=== PATIENT | female | born 1940 | race Caucasian/White ===

== ENCOUNTER 2019-06-03 11:35 | Day surgery (SDC) | payer MEDICARE, SELFPAY ==
[2019-06-03] VITALS (13 sets, daily range): BP systolic 97–127; BP diastolic 43–67; PULSE 44–68; RESP 12–26; TEMP 36.3–36.4; O2SAT 95–100; BMI 24.8
--- NOTE | 2019-06-03 12:26 | ANES.PREANE2 ---
Pre-Anesthetic Assessment Pre-Anesthetic Assessment: Height/Weight: Height 1.57 m Weight 61.689 kg Preop Diagnosis: L inguinal Hernia Proposed Procedure: Operation Date: 06/03/19 15:40 Proposed Procedures p Lap poss Open left Inguinal Hernia Repair with Mesh [id number] K40.30(Not Applicable) - Salbador Light MD Familial anesthetic complications: waking up during anesthesia - wasn't able to move during, was paralyzed, but could feel pain and voices talking about need for cautery, then she fell asleep, states she had a breathing tube in. states this episode lasted about 2 minutes Was Beta Ramesh taken within 24 hours: N/A Last intake: Intake Last Liquid Date 06/02/19 Last Liquid Time 22:00 Last Solid Date 06/02/19 Last Solid Time 06:30 Social: Social History: No alcohol and No tobacco Exam: Pre-Anes Outpt Exam: alert, oriented x 3, clear to auscultation bilaterally and regular rate & rhythm Airway: Cervical ROM: WNL Dentition: Full Pulmonary: Pulmonary: COPD (seen on imaging) Comments: hx PE in chart, but patient denies CV/HEM: Comments: Holter monitor 08/27 - PVCs, couplets Echo 08/27 - normal RV, LV, Mild AVR, MVR, mild pulm HTn hx pericarditis : : None reported Hepatic: Hepatic: None reported GI: GI: None reported Metabolic: Metabolic: Hyperlipidemia Comments: used to be morbidly obese Musc/skel: Musc/skel: Lower Back Pain Neuropsych: Neuropsych: None reported Comments: glaucoma Anesthetic Plan: ASA status: 3 Anesthesia: General Risk of > 500 ml blood loss (7ml/kg in children): No PFSH Anesthesia PFSH: Social History Smoking and tobacco status: former smoker History of recent travel: No Data Anesthesia Cardiac Studies: No Data to Display
[2019-06-03] MEDS: sodium chloride 0.9% 1,000 ML 30 ML IV (12:56)
--- NOTE | 2019-06-03 15:28 | W.PM.OPSUD ---
Surgery/Procedure H&P Update DATE OF PROCEDURE: June 03, 2019 DATE H&P PERFORMED: 06/02/19 H&P UPDATE INFORMATION: I have reviewed H&P completed within last 30 days, I have examined patient prior to procedure and No changes to prior documentation PREOP DIAGNOSIS: L inguinal Hernia PLANNED PROCEDURE: Operation Date: 06/03/19 15:40 Proposed Procedures p Lap poss Open left Inguinal Hernia Repair with Mesh [id number] K40.30(Not Applicable) - Salbador Light MD
--- NOTE | 2019-06-03 16:52 | SUR.PHASEI ---
1650 PATIENT TO PACU AT THIS TIME FROM OR. RR EVEN AND UNLABORED. RESPONDS TO VERBAL STIMULI. DENIES PAIN. 3 INCISIONS TO ABDOMEN, CDI, CLOSED WITH EXOFIN.
[2019-06-03] MEDS: fentaNYL 50 mcg/mL INJ 2mL IVP ×2 (17:03→17:11)
--- NOTE | 2019-06-03 17:34 | SUR.PHASEI ---
1731 PATIENT TO OPS AT THIS TIME. RR EVEN AND UNLABORED. TOLERATING ICE CHIPS. INCISIONS TO ABDOMEN, CDI.
--- NOTE | 2019-06-13 17:23 | PM.OP ---
Operative Report Date of procedure: June 03, 2019 Pre-op Diagnosis: L inguinal Hernia Post-op Diagnosis: Large left indirect inguinal hernia Procedure Done: Laparoscopic repair of left indirect reducible inguinal hernia with 15 x 15 cm ultra Pro mesh Pathology: none sent Surgeon: Salbador Light Anesthesia: General Estimated blood loss (mL): 10 Condition: stable Disposition: PACU Procedure: The patient was taken to the operating room. After IV antibiotic was administered, the abdomen was prepped and draped in a sterile manner. Using a 15 blade, a 1.0 cm transverse incision was made infraumbilically on the left side. Subcutaneous tissue was divided using electrocautery and the anterior rectus sheath divided using an 11 blade. The rectus muscle was retracted laterally and the extraperitoneal space identified. A 11 mm port was placed and 12 mm of pneumoperitoneum was created. A 10 mm 30? scope was introduced and the retrorectus space was opened using the camera up to the pubic symphysis and 5 mm ports were placed in the midline, one 2-fingerbreadths above the pubic symphysis and the other midway between these two ports under direct visualization. Blunt dissection was carried out to open up the tissue in the midline and to the pubic symphysis, which was identified. The dissection was then carried laterally where the iliopubic tract was identified. There was no femoral, obturator or direct hernia noted. The inferior epigastric artery was identified and dissection was carried posterior to it and laterally, the space was opened up to the level of the umbilicus superior to the anterior superior iliac spine. I then proceeded to dissect out the round ligament and the large indirect hernial sac was reduced . 15 x 15cm Ultrapro mesh was rolled and introduced through the 10 mm port and then rolled laterally and apposed well against the abdominal wall to cover the myopectineal orifice completely. 10 Cc of 0.5% Marcaine was infiltrated into the preperitoneal space. The extraperitoneal space was desufflated under direct visualization to ensure no slippage of hernial sac under the mesh. All ports were removed, the anterior rectus fascia at the infraumbilical port closed using figure of eight 0 Vicryl sutures, subcutaneous tissue approximated using 3-0 Vicryl sutures and skin at all three port sites were closed using running subcuticular 4-0 Monocryl sutures and Dermabond. 10 mL of 0.5% Marcaine was infiltrated at the port sites. The patient was stable throughout the procedure.
== END 2019-06-03 18:35 | disposition home or self-care (01) ==
PROVIDERS: Family Provider Family Medicine; Visit Provider Surgery
PROC: (CPT 49650; principal; 2019-06-03 15:10)
DX: K40.90 Unilateral inguinal hernia, without obstruction or gangrene, not specified as recurrent (principal); Z87.891 Personal history of nicotine dependence; E78.5 Hyperlipidemia, unspecified
CPT/HCPCS: 49650; 12345; J0131; J0330; J0690; J2001; J2250; J2704; J2710; J3010; J3490; J7030

== ENCOUNTER 2019-06-04 18:37 | Observation (INO) | payer MEDICARE, SELFPAY ==
--- NOTE | 2019-06-04 19:21 | ED_ITS ---
HPI - Abdominal Pain General: Chief Complaint: Abdominal Pain Stated Complaint: abd pain Time Seen by Provider: 06/04/19 19:19 History of Present Illness: MD elicited complaint: abdominal pain Pertinent past history: other (Left inguinal hernia repair yesterday) Onset (ago): hour(s) Location: RUQ and RLQ Severity: moderate Quality: cramping, aching and sharp Radiation: none Migration to: no migration Exacerbating factors: movement Associated Symptoms: Reports constipation, fever(s) and nausea; Denies dysuria, hematuria and vomiting Review of Systems Const: Reports: fever Eyes: Denies: change in vision or blurry vision ENMT: Denies: painful swallowing, Change in hearing, nose bleeds or facial/sinus pain Card: Denies: chest pain or edema Resp: Denies: shortness of breath, productive cough, non-productive cough or wheezing GI: Reports: nausea and constipation; Denies: vomiting : Denies: painful urination, urinary frequency, urinary urgency or blood in urine Musc: Denies: neck pain, back pain, redness or joint warmth Skin/Breast: Denies: rash, itching or redness Neuro: Denies: headache, dizziness, vertigo or confusion Psych: Denies: anxiety PFSH ED PFSH: Social History Smoking and tobacco status: never smoked History of recent travel: No Physical Exam Const: GENERAL APPEARANCE: well developed ORIENTATION/CONSCIOUSNESS: Yes oriented to person, Yes oriented to place and Yes oriented to time HENMT: COMMON NORMALS: normocephalic, external ears normal and external nose normal HEAD & SCALP: normocephalic FACE & SINUS: normal facial exam NO SE: external nose normal and no nasal discharge EXTERNAL EAR: Yes external ears normal MOUTH: tongue normal Eye: COMMON NORMALS: PERRL, EOMs intact bilaterally and conjunctivae normal EYELID: eyelids normal CONJUNCTIVA: Yes conjunctivae normal PUPIL: Yes PERRL Neck/C-Spine: GENERAL: No tracheal deviation Chest: COMMONS NORMALS: inspection of chest normal CHEST: No tenderness Resp: COMMON NORMALS: clear to auscultation bilaterally EFFORT & INSPECTION: No tachypneic, No respiratory distress, No retractions, No uses accessory muscles and No tracheal deviation AUSCULTATION: clear to auscultation bilaterally, no rhonchi, no wheezes and lung sounds not diminished Cardio: COMMON NORMALS: regular rate and regular rhythm RATE: regular rate RHYTHM: regular rhythm HEART SOUNDS: no murmurs PERIPHERAL PULSES: radial pulses present GI: INSPECTION: No abdominal distension AUSCULTATION: No hyperactive bowel sounds and No hypoactive bowel sounds PALPATION: Yes tender Details: RLQ and RUQ, Yes guarding and No rigid PERCUSSION: no dullness to percussion and no tympanic to percussion : COMMON NORMALS: Yes no CVA tenderness BLADDER/KIDNEY EXAM: Yes no CVA tenderness Back/Pelvis: COMMON NORMALS: no CVA tenderness Neuro: SENSORIUM/ORIENTATION: Yes oriented to person, Yes oriented to place and Yes oriented to time Psych: COMMON NORMALS: mental status grossly normal Skin: COMMON NORMALS: no rashes or lesions noted GENERAL SKIN EXAM: no rashes or lesions noted Course Consultations: Consultation #1: evelin Vital Signs: Vital signs: Vital Signs Temperature 97.5 F L 06/05/19 01:39 Pulse Rate 78 06/05/19 01:39 Respiratory Rate 19 H 06/05/19 01:39 Blood Pressure 150/81 06/05/19 01:39 Pulse Oximetry 91 06/05/19 01:39 MDM - Abdominal Pain MDM Narrative: Medical decision making narrative: 79-year-old lady presenting with right-sided belly pain. 24 hours prior, she had had surgery for left inguinal hernia. She had done well until around 10 AM, and began to get pain on her right side. Pain worsened over the course of the day. Now pain with deep breaths, and any movement. She feels like she needs to have a bowel movement. She seemed to worsen after taking Colace. She is also had a fever at home up to 101.9. Her white blood cell count is normal. Her labs are benign. CT shows pneumoperitoneum, retroperitoneal air, and some subcutaneous emphysema. Spoke with her surgeon. This may be related to her surgery. CT was repeated with oral contrast, which did not reveal any extravasation of the contrast from any bowel perforation. She will be observed. She has gotten Zosyn. Lab Data: Labs: Lab Results 06/04/19 06/04/19 06/04/19 Range/Units 19:50 19:50 19:50 WBC 6.5 (4.0-10.0) 10^3/ uL RBC 3.70 L (4.1-5.3) 10^6/u L Hgb 11.5 (11.5-15.3) g/dL Hct 37.8 (37.0-47.0) % MCV 102.2 H (81-99) fL MCH 31.1 (28.0-34.0) pg MCHC 30.4 (30.0-36.0) g/dL RDW 13.0 (12.1-15.1) % Plt Count 178 (130-400) 10^3/c mm MPV 9.6 (7.4-10.4) fL Neut % (Auto) 70.9 % Lymph % (Auto) 19.3 % [facility] % (Auto) 8.3 % Eos % (Auto) 0.9 % Baso % (Auto) 0.3 % Neut # (Auto) 4.6 (1.8-7.7) 10^3/u L Lymph # (Auto) 1.3 (0.8-4.8) 10^3/u L [facility] # (Auto) 0.5 (0.2-0.9) 10^3/u L Eos # (Auto) 0.1 (0.0-0.8) 10^3/u L Baso # (Auto) 0.0 (0.0-0.1) 10^3/u L Nucleated RBC % (a uto) 0 % Nucleated RBCs # 0.0 /100WBC Sodium 137 (136-145) mmol/L Potassium 4.0 (3.5-5.1) mmol/L Chloride 99 (98-107) mmol/L Carbon Dioxide 26 (22-29) mmol/L Anion Gap 16.0 (5-19) BUN 14 (8-23) mg/dL Creatinine 0.8 (0.5-0.9) mg/dL Glucose 108 (65-115) mg/dL Calculated Osmolal ity 281 L (285-295) mOsm/k g Lactate 0.7 (0.5-2.2) mmol/L Calcium 9.7 (8.5-10.5) mg/dL Total Bilirubin 0.7 (0.15-1.2) mg/dL AST 25 (0-32) U/L ALT < 5 (0-33) U/L Alkaline Phosphata se 59 (35-105) IU/L C-Reactive Protein 41.1 H (0.0-4.9) mg/L Total Protein 7.1 (6.6-8.7) g/dL Albumin 4.4 (3.5-5.2) g/dL Globulin 2.7 (1.3-4.6) g/dL Lipase 20 (13-60) U/L Urine Color (Yellow) Urine Appearance (CLEAR) Urine pH (5-7) Ur Specific Gravit y (1.005-1.030) Urine Protein (Negative) Urine Glucose (UA) (Normal) Urine Ketones (Negative) Urine Blood (Negative) Urine Nitrate (Negative) Urine Bilirubin (NEGATIVE) Urine Urobilinogen (Negative) mg/dL Ur Leukocyte Trini ase (Negative) Urine RBC (0-2) /hpf Urine WBC (0-5) /hpf Ur Squamous Epith Cells (0-5) Ur Transition Epit h Cell /hpf Urine Bacteria (NONE) Hyaline Casts Urine Mucus 06/04/19 Range/Units 20:35 WBC (4.0-10.0) 10^3/ uL RBC (4.1-5.3) 10^6/u L Hgb (11.5-15.3) g/dL Hct (37.0-47.0) % MCV (81-99) fL MCH (28.0-34.0) pg MCHC (30.0-36.0) g/dL RDW (12.1-15.1) % Plt Count (130-400) 10^3/c mm MPV (7.4-10.4) fL Neut % (Auto) % Lymph % (Auto) % [facility] % (Auto) % Eos % (Auto) % Baso % (Auto) % Neut # (Auto) (1.8-7.7) 10^3/u L Lymph # (Auto) (0.8-4.8) 10^3/u L [facility] # (Auto) (0.2-0.9) 10^3/u L Eos # (Auto) (0.0-0.8) 10^3/u L Baso # (Auto) (0.0-0.1) 10^3/u L Nucleated RBC % (a uto) % Nucleated RBCs # /100WBC Sodium (136-145) mmol/L Potassium (3.5-5.1) mmol/L Chloride (98-107) mmol/L Carbon Dioxide (22-29) mmol/L Anion Gap (5-19) BUN (8-23) mg/dL Creatinine (0.5-0.9) mg/dL Glucose (65-115) mg/dL Calculated Osmolal ity (285-295) mOsm/k g Lactate (0.5-2.2) mmol/L Calcium (8.5-10.5) mg/dL Total Bilirubin (0.15-1.2) mg/dL AST (0-32) U/L ALT (0-33) U/L Alkaline Phosphata se (35-105) IU/L C-Reactive Protein (0.0-4.9) mg/L Total Protein (6.6-8.7) g/dL Albumin (3.5-5.2) g/dL Globulin (1.3-4.6) g/dL Lipase (13-60) U/L Urine Color Yellow (Yellow) Urine Appearance Clear (CLEAR) Urine pH 5 (5-7) Ur Specific Gravit y 1.015 (1.005-1.030) Urine Protein Neg (Negative) Urine Glucose (UA) Norm (Normal) Urine Ketones 2+ H (Negative) Urine Blood 3+ H (Negative) Urine Nitrate Negative (Negative) Urine Bilirubin Neg (NEGATIVE) Urine Urobilinogen Norm (Negative) mg/dL Ur Leukocyte Trini ase Negative (Negative) Urine RBC 25-40 H (0-2) /hpf Urine WBC 0-4 H (0-5) /hpf Ur Squamous Epith Cells 0-4 H (0-5) Ur Transition Epit h Cell 0-4 /hpf Urine Bacteria Trace (NONE) Hyaline Casts 0-4 H Urine Mucus 1+ Discharge Plan Discharge Admit Provider: Salbador Light Discharge Date/Time: 06/05/19 01:25 Coding Level of Care Code ED Pallet Stone Inserter for Sue Arauz
[2019-06-04 19:23] VITALS: BP 132/82; PULSE 86; RESP 18; TEMP 37.7; O2SAT 98; BMI 24.8
--- NOTE | 2019-06-04 19:28 | PC.NURSE ---
Patient returns to [facility] with a post hernia surgery low grade fever.
--- NOTE | 2019-06-04 19:39 | CTR_ITS ---
PROCEDURE INFORMATION: Exam: CT Abdomen And Pelvis With Contrast Exam date and time: 06/04/2019 8:21 PM Age: 79 years old Clinical indication: Abdominal pain; Localized; Right; Prior surgery; Surgery date: Post-operative (0-2 days); Patient HX: C/O R sided abd pain after L hernia surgery yesterday; Additional info: R sided abdominal pain, surgery yesterday TECHNIQUE: Imaging protocol: Computed tomography of the abdomen and pelvis with intravenous contrast. Total DLP: 586.26 mGy-cm Radiation optimization: All CT scans at this facility use at least one of these dose optimization techniques: automated exposure control; mA and/or kV adjustment per patient size (includes targeted exams where dose is matched to clinical indication); or iterative reconstruction. Contrast material: OMNI 300; Contrast volume: 95 ml; Contrast route: 20G; COMPARISON: CT abdomen pelvis w con* [id number] 08/30/2018 1:07 PM FINDINGS: Lungs: Limited assessment lung bases reveals no evidence of active cardiopulmonary process. Cardiomegaly. Liver: Liver unremarkable. Gallbladder and bile ducts: Enlarged hydropic gallbladder. No visible cholelithiasis. No visible pericholecystic fluid or gallbladder wall thickening. Pancreas: Pancreas unremarkable. No visible pancreatic ductal ectasia. Spleen: Spleen unremarkable. Adrenals: Adrenal glands unremarkable. Kidneys and ureters: Rare simple renal cortical cyst. No hydronephrosis or perinephric fluid. Stomach and bowel: Redundant colon with diverticulosis coli without visible evidence of diverticulitis. Nonobstructive bowel pattern. No visible adynamic or reactive ileus. Appendix: No evidence of appendicitis. Intraperitoneal space: Findings raising the potential for gastroesophageal perforation. Potential rent at the gastroesophageal junction with extra luminal gas. Diffuse pockets of free air/pneumoperitoneum. Largest collection intraperitoneal pneumoperitoneum at the perforation site extending along the left renal Gerota's fascial plane. Small volume of intraperitoneal free air. Also note of a small amount of left-sided retroperitoneal air / pneumoretroperitoneum primarily in the left para renal space and the pericaval/periaortic space. No visible intraperitoneal ascites. Vasculature: The abdominal aorta is nonaneurysmal but demonstrates moderately advanced arterial sclerotic disease. Lymph nodes: Unremarkable. No enlarged lymph nodes. Bladder: Urinary bladder unremarkable. Reproductive: Unremarkable as visualized. Bones/joints: Degenerative disease and degenerative disc disease with facet arthrosis, osteoporosis, and scoliosis. Soft tissues: Numerous small pockets of subcutaneous emphysema throughout the lower abdomen, pelvis, and left inguinal region. Subcutaneous emphysema pockets throughout the left flank also present. Left inguinal hernia measuring 74 mm by 32 mm x 64 mm. Left inguinal hernia contains primarily fat with stranding and pockets of punctate emphysema. No incarcerated bowel. No loculated fluid collection. Clinical history provided by the ordering physician of a recent left inguinal herniorrhaphy. No visible hollow viscus perforation at the operative site. CT/CT abdomen pelvis w con* [id number] IMPRESSION: 1. Diffuse moderate volume pneumoperitoneum and small volume pneumoretroperitoneum. Exact etiology remains indeterminate. 2. Free intraperitoneal air congregates at at the gastroesophageal junction and raises some concern for a gastroesophageal perforation; however, this does not fit the clinical picture provided by the ordering physician. 3. Unable to identify a perforated hollow viscus site. 4. Left inguinal hernia containing dirty appearing fat with associated pockets of emphysema. Dimensions of the left inguinal hernia 74 mm x 32 mm x 64 mm. 5. Soft tissue subcutaneous emphysema. 6. Numerous other nonurgent, nonemergent, chronic, and age related findings as detailed in text above. COMMENTS: Consistent with the [place] [employer]'s Incidental Findings Committee white paper (J Am Moses Radiol 2018): Any incidental cystic renal lesion classified in this report as too small to characterize or simple appearing is likely a benign cyst. No follow-up imaging is recommended for these lesions per consensus recommendations based on imaging criteria. Radiation Dose CTDIVOL = (mGy): DLP = 586.26 (mGy-cm)
[2019-06-04 20:03] LABS: Basophils % 0.3 %; Eosinophils # 0.1 10^3/uL (0.0-0.8); Eosinophils % 0.9 %; Hematocrit 37.8 % (37.0-47.0); Hemoglobin 11.5 g/dL (11.5-15.3); Lymphocytes # 1.3 10^3/uL (0.8-4.8); Lymphocytes % 19.3 %; Mean Corpuscular HGB Conc 30.4 g/dL (30.0-36.0); Mean Corpuscular Hemoglobin 31.1 pg (28.0-34.0); Mean Corpuscular Volume 102.2 fL (81-99); Mean Platelet Volume 9.6 fL (7.4-10.4); Monocytes # 0.5 10^3/uL (0.2-0.9); Monocytes % 8.3 %; Neutrophils # 4.6 10^3/uL (1.8-7.7); Neutrophils % 70.9 %; Nucleated Red Blood Cells % 0 %; Platelet Count 178 10^3/cmm (130-400); White Blood Count 6.5 10^3/uL (4.0-10.0)
[2019-06-04] MEDS: morphine 4 mg/mL SDV 1 mL IVP (20:15)
[2019-06-04] MEDS: ondansetron 2 mg/ML SDV 2 mL 4 MG IVP (20:15)
[2019-06-04] MEDS: sodium chloride 0.9% 500 ML IV (20:16)
[2019-06-04 20:19] LABS: Lactate (Lactic Acid level) 0.7 mmol/L (0.5-2.2)
[2019-06-04 20:22] LABS: Alanine Aminotransferase < 5 U/L (0-33); Albumin Level 4.4 g/dL (3.5-5.2); Alkaline Phosphatase 59 IU/L (35-105); Aspartate Amino Transferase 25 U/L (0-32); Blood Urea Nitrogen 14 mg/dL (8-23); Calcium 9.7 mg/dL (8.5-10.5); Carbon Dioxide 26 mmol/L (22-29); Chloride 99 mmol/L (98-107); Globulin 2.7 g/dL (1.3-4.6); Glucose 108 mg/dL (65-115); Lipase 20 U/L (13-60); Osmolality Calculated 281 mOsm/kg (285-295); Sodium 137 mmol/L (136-145); Total Bilirubin 0.7 mg/dL (0.15-1.2); Total Protein 7.1 g/dL (6.6-8.7)
[2019-06-04] MEDS: iohexol 300 mg/mL 100 mL Btl IV (20:54)
[2019-06-04 20:57] LABS: Add Urine Microscopic? YES; Bilirubin Urine Neg (NEGATIVE); Blood Urine 3+ (Negative); Glucose Urine UA Norm (Normal); Ketones Urine 2+ (Negative); Leukocyte Esterase Urine Negative (Negative); Nitrate Urine Negative (Negative); Protein Urine Neg (Negative); Specific Gravity, Urine 1.015 (1.005-1.030); Urine Appearance Clear (CLEAR); Urine Color Yellow (Yellow); Urobilinogen Urine Norm (Negative); pH Urine 5 (5-7)
[2019-06-04 20:57] LABS: C Reactive Protein 41.1 mg/L (0.0-4.9)
[2019-06-04 21:01] LABS: RBC Urine 25-40 /hpf (0-2); Squamous Epithelial Cell Urine 0-4 (0-5); Transitional Epi Cells Urine 0-4 /hpf; WBC Urine 0-4 /hpf (0-5)
[2019-06-04 21:02] LABS: Add Urine Culture? Yes; Bacteria Urine TRACE; Hyaline Casts Urine 0-4; Mucus Urine 1+
[2019-06-04 21:07] VITALS: BP 103/47; PULSE 77; RESP 14; O2SAT 96
--- NOTE | 2019-06-04 21:55 | CTR_ITS ---
PROCEDURE INFORMATION: Exam: CT Abdomen And Pelvis Without Contrast Exam date and time: 06/04/2019 10:08 PM Age: 79 years old Clinical indication: Abdominal pain; Localized; Right lower quadrant (rlq); Prior surgery; Surgery date: Post-operative (0-2 days); Surgery type: L hernia repair; Additional info: Free air, pain TECHNIQUE: Imaging protocol: Computed tomography of the abdomen and pelvis without contrast. Total DLP: 628.94 mGy-cm Radiation optimization: All CT scans at this facility use at least one of these dose optimization techniques: automated exposure control; mA and/or kV adjustment per patient size (includes targeted exams where dose is matched to clinical indication); or iterative reconstruction. COMPARISON: CT abdomen pelvis w con* [id number] 06/04/2019 8:52 PM FINDINGS: Please review previous CT abdomen and pelvis report same date at 8:52 p.m. Examination repeated with oral contrast. Kidneys and ureters: Delayed contrast excretion of the kidneys, ureter, and urinary bladder without filling defect. Stomach and bowel: Oral contrast to the proximal ileal loops only. No contrast within the colonic loops. No contrast within the distal ileal loops. No visible extravasation of contrast.Specifically no extravasation of contrast at the gastroesophageal junction. Doubt gastroesophageal junction rupture/rent. Remainder of the examination unchanged since the initial study of 8:52 p.m. Intraperitoneal space: Intraperitoneal pneumoperitoneum and retro pneumoperitoneum remains as previously discussed. Subcutaneous subcutaneous emphysema also unchanged. CT/CT abdomen pelvis wo con [id number] IMPRESSION: 1. No visible extravasated oral contrast to include no evidence of gastroesophageal perforation. 2. No interval change intraperitoneal pneumoperitoneum, retropneumoperitoneum, or subcutaneous emphysema as previously discussed. 3. Remainder of examination unchanged since original study of 8:52 p.m.. Radiation Dose CTDIVOL = (mGy): DLP = 628.94 (mGy-cm)
[2019-06-04] MEDS: piperacillin-tazobactam 3.375 GM in sodium chloride 0.9% (plus) 50 ML IV (23:04)
[2019-06-05] VITALS (15 sets, daily range): BP systolic 104–150; BP diastolic 62–81; PULSE 67–94; RESP 16–22; TEMP 36.4–37.7; O2SAT 19–96
--- NOTE | 2019-06-05 01:15 | PC.NURSE ---
notified patient family of admit per patients request. Spoke to Erick Wu patients son.
[2019-06-05] MEDS: ondansetron 2 mg/ML SDV 2 mL 4 MG IVP (02:28)
[2019-06-05] MEDS: lactated ringers 1,000 ML 100 ML IV (02:29)
[2019-06-05] MEDS: morphine 4 mg/mL SDV 1 mL 2 MG IVP ×4 (02:29→22:54)
[2019-06-05 05:13] LABS: Basophils % 0.2 %; Eosinophils # 0.1 10^3/uL (0.0-0.8); Eosinophils % 2.1 %; Hematocrit 34.5 % (37.0-47.0); Hemoglobin 10.4 g/dL (11.5-15.3); Lymphocytes # 1.1 10^3/uL (0.8-4.8); Lymphocytes % 23.5 %; Mean Corpuscular HGB Conc 30.1 g/dL (30.0-36.0); Mean Corpuscular Hemoglobin 30.1 pg (28.0-34.0); Mean Corpuscular Volume 99.7 fL (81-99); Mean Platelet Volume 9.6 fL (7.4-10.4); Monocytes # 0.6 10^3/uL (0.2-0.9); Nucleated Red Blood Cells % 0 %; Platelet Count 146 10^3/cmm (130-400); Red Blood Count 3.46 10^6/uL (4.1-5.3); Red Cell Distribution Width 13.1 % (12.1-15.1); White Blood Count 4.8 10^3/uL (4.0-10.0)
[2019-06-05 05:31] LABS: Alanine Aminotransferase 10 U/L (0-33); Alkaline Phosphatase 53 IU/L (35-105); Anion Gap 13.7 (5-19); Aspartate Amino Transferase 24 U/L (0-32); Blood Urea Nitrogen 11 mg/dL (8-23); Calcium 9.6 mg/dL (8.5-10.5); Carbon Dioxide 30 mmol/L (22-29); Chloride 101 mmol/L (98-107); Globulin 2.4 g/dL (1.3-4.6); Glucose 93 mg/dL (65-115); Osmolality Calculated 288 mOsm/kg (285-295); Potassium 3.7 mmol/L (3.5-5.1); Sodium 141 mmol/L (136-145); Total Bilirubin 0.6 mg/dL (0.15-1.2); Total Protein 6.4 g/dL (6.6-8.7)
[2019-06-05] MEDS: sodium chloride 0.9% 1,000 ML 100 ML IV ×2 (06:33→16:55)
--- NOTE | 2019-06-05 07:35 | PC.NURSE ---
This TELEGRAPHIC TYPEWRITER MECHANIC was checking patients vital signs and her oxygen was low. This Ground Service Equipment Mechanic encouraged the patient to do some deep breathing and the patient refused. This data virtualization consultant went and reported it to the nurse and the nurse said that she would go in the patients room and educate her
--- NOTE | 2019-06-05 09:00 | XRR_ITS ---
PROCEDURE INFORMATION: Exam: XR Chest, 1 View Exam date and time: 06/05/2019 10:25 AM Age: 79 years old Clinical indication: Shortness of breath; Prior surgery; Surgery date: Post-operative (0-2 days); Patient HX: Abd free air S/P lap hernia 2 days ago C/O SOB; Additional info: SOB S/P lap hernia repair 2 days ago TECHNIQUE: Imaging protocol: XR of the chest Views: 1 view. COMPARISON: No relevant prior studies available. FINDINGS: Lungs: Hyperinflation, interstitial prominence, and basilar airspace disease. Pleural space: Questionable left pleural effusion, which can be better evaluated with AP and lateral chest radiographs. Heart/Mediastinum: Cardiomegaly. Upper abdomen: Pneumoperitoneum in the setting of recent surgery. Vasculature: Calcification of the thoracic aorta. Bones/joints: Osteopenia and degenerative change. XR/XR chest 1V portable [id number] IMPRESSION: 1. Hyperinflation, interstitial prominence, and basilar airspace disease. 2. Pneumoperitoneum in the setting of recent surgery.
[2019-06-05] MEDS: piperacillin-tazobactam 3.375 GM in sodium chloride 0.9% (plus) 50 ML IV ×2 (09:33→16:56)
--- NOTE | 2019-06-05 10:29 | P.HP_ITS ---
Providers/Chief Complaint Admitting Physician: Salbador Light MD Chief Complaint: abd pain History of Present Illness Brittny Ramirez is a 79 year old female who had undergone laparoscopic repair of left inguinal hernia with mesh day before yesterday. Patient had done well yesterday morning and did not have any abdominal pain and had gone for 1/2 mile walk. Later yesterday she started having abdominal pain, distention and started running a fever. Patient states that the pain is mainly on the right side does not have any pain at the site of the surgical repair. She denies any nausea or vomiting. She has already walked 2 laps on the floor today but states that she is the most comfortable when she is sitting up on her side. Her T-max since admission was 99.7 this morning, she is not tachycardic. She had a CT abdomen pelvis which showed large amount of pneumoperitoneum but no evidence of bowel injury. She seems to have significant amount of stool in the right colon. Patient states that her pain got worse after she took Colace yesterday. Denies any urinary symptoms or shortness of breath though she states that she is not able to take a deep breath. Review of Systems General: Reports: 10 or more systems reviewed and unremarkable except in HPI and below Medications/Allergies Allergies Allergy/AdvReac Type Severity Reaction Status Date / Time Antihistamines - Alkylamine Allergy ADR-Hyperte Verified 06/02/19 16:21 nsion Antihistamines - Ethanolamine Allergy ADR-Hyperte Verified 06/02/19 16:21 nsion Antihistamines - Allergy ADR-Hyperte Verified 06/02/19 16:21 Ethylenediamine nsion Antihistamines - Piperazine Allergy ADR-Hyperte Verified 06/02/19 16:21 nsion Antihistamines - Piperidine Allergy ADR-Hyperte Verified 06/02/19 16:21 nsion pneumococcal vaccine Allergy Unknonwn Verified 06/02/19 16:30 [From Pneumovax-23] quinine Allergy Restless Verified 06/02/19 16:30 leg PFSH Acute PFSH: Social History Smoking and tobacco status: never smoked History of recent travel: No Vitals/I&O/Wt Last Vital Signs Temp 99.6 F 04/19/20 07:34 Pulse 73 06/05/19 07:34 Resp 18 06/05/19 07:34 BP 120/64 06/05/19 07:34 Pulse Ox 89 L 06/05/19 07:34 06/04/19 06/05/19 06/05/19 22:59 06:59 14:59 Intake Total 550 / 550 Output Total 800 / 800 Balance 550 / 550 -800 / -800 Weight last 48 hrs Weight 136 lb Physical Exam Narrative: EXAM NARRATIVE: HEENT: Normocephalic Eye: Sclera /conjunctiva normal Respiratory and chest: Bilateral clear breath sounds on auscultation Cardiovascular: Normal S1 and S2 heart sounds Abdomen: Soft to palpation, tender right upper and lower quadrant, minimally tender left upper quadrant, no tenderness in the left lower quadrant. Incisions healing well, no significant distention Neurological: Oriented to place person and time Skin: Intact, no lesions appreciated on gross exam Data : 06/05/19 04:59 06/05/19 04:59 A&P Assessment and plan (1) Status post left inguinal hernia repair: Denies any pain or any complaints in the left groin, no evidence of hernia recurrence Status: Acute (2) Abdominal pain: Mainly right-sided, white count and lactate were normal. UA was negative. Chest x-ray is pending from this morning. CT abdomen pelvis revealed pneumo peritoneum as well as moderate to large amount of stool in the right colon Resume home medications Incentive spirometry Ambulate ad tiffanie. Clear liquid diet Soapsuds enema Magnesium citrate Lovenox 40 mg daily Patient will need 1 more night of inpatient stay to ensure that she does not develop any complications, concern being a possible bowel injury though clinically at this point she does not appear to have any evidence of bowel injury. Status: Acute Attestations Medical Necessity Statement*: Open status post left inguinal hernia repair, admitted as patient is febrile no evidence of bowel obstruction or bowel injury at this point Coding Level of Care Code Acute Look Out Tower Fire Watcher for Sue Arauz Diagnoses Status post left inguinal hernia repair Z98.890; Z87.19 Abdominal pain R10.9
[2019-06-05] MEDS: lactulose oral liq 20 gm/30 mL UDC PO ×2 (12:01→22:54)
[2019-06-05] MEDS: magnesium citrate Btl 296 mL 150 ML PO (12:43)
[2019-06-05] MEDS: docusate sodium 100 mg Capsule PO (17:43)
[2019-06-05] MEDS: enoxaparin 40 mg/0.4 mL Syringe SUBCUT (22:55)
[2019-06-06] VITALS: BP 102/61; PULSE 75; RESP 18; TEMP 37.2; O2SAT 90
[2019-06-06] MEDS: piperacillin-tazobactam 3.375 GM in sodium chloride 0.9% (plus) 50 ML IV (01:49)
[2019-06-06] MEDS: sodium chloride 0.9% 1,000 ML 100 ML IV (03:33)
[2019-06-06 04:00] VITALS: BP 107/61; PULSE 71; RESP 17; TEMP 37.4; O2SAT 90
[2019-06-06 08:00] VITALS: BP 112/69; PULSE 87; RESP 18; TEMP 37.1; O2SAT 90
[2019-06-06] MEDS: docusate sodium 100 mg Capsule PO (09:34)
[2019-06-06] MEDS: lactulose oral liq 20 gm/30 mL UDC PO (09:35)
[2019-06-06] MEDS: magnesium citrate Btl 296 mL PO (09:43)
--- NOTE | 2019-06-06 09:55 | PC.CHAP ---
Pastoral Care Encounter/Spiritual Assessment Type of Contact [] Declined band leader visit [] Patient/Family/Request visit [] Outpatient visit [] Follow-up visit [] Physician referral [] Code/Alert [x] Routine visit [] Staff referral [] Actively dying [] Patient sleeping [] Family support [] [] Out of room [] Palliative care [] [] Receiving care in room [] Pre-surgical visit [] Trauma [] Long length of stay [] ICU visit [] Other: Relational/Emotional Strength [] Patient feels connected with others/family/visitors/staff [] Distress [] Loneliness/isolation [] Abandonment Spirituality of Patient [] Person of Savana [] Attends Mormon of their [place] [x] Believes in Prayer [] Reads Bible or Cheondoism materials [] There are Spiritual issues to be addressed Building Construction Contractor Interventions [x] Prayer [] Active listening [] Non-anxious presence [] Spiritual/emotional support [] Crisis/trauma care [] Spiritual counseling [] Bereavement support [] Provided bereavement packet [] Provided Bible/devotional materials [] Provided toy/stuffed animal, coloring book to patient or family member [] Provided Communion [] Anointing/[employer] [] Salvation [x] Completed spiritual assessment [] Other: Impact on Illness or Injury [] Angry [] Fearful [] Anxious [] Often cries [] Exhaustion [] Unable to work [] Unable to attend restorationism [] Unable to walk/stand [] Unable to read [] Unable to drive [] Unable to eat/drink [] Unable to sleep [] Unable to be with family [] Patient intubated [] Other: Summary Patients pain under control, feeling much better Time spent with patient 10 min
[2019-06-06 11:33] VITALS: BP 117/71; PULSE 78; RESP 18; TEMP 37; O2SAT 94
--- NOTE | 2019-06-06 13:55 | PM.PN ---
Subjective Subjective: Interval history: Patient has been feeling a lot better though still has some right lower quadrant pain. No nausea or vomiting. Had a large bowel movement today Vitals/I&O/Wt Last Vital Signs Temp 98.6 F 06/06/19 11:33 Pulse 78 06/06/19 11:33 Resp 18 06/06/19 11:33 BP 117/71 06/06/19 11:33 Pulse Ox 94 06/06/19 11:33 06/05/19 06/06/19 06/06/19 22:59 06:59 14:59 Intake Total 1512 / 2562 1000 / 2562 480 / 480 Output Total 1800 / 2600 Balance -288 / -38 1000 / -38 480 / 480 Weight last 48 hrs Weight 136 lb Physical Exam Narrative: EXAM NARRATIVE: Abdomen: Soft, Minimally tender on the right side, nondistended cyst healing well Data : 06/05/19 04:59 06/05/19 04:59 Micro: Microbiology 06/04/19 20:35 Urine Culture - Preliminary Urine,Clean Catch A&P Assessment and plan (1) Status post left inguinal hernia repair: Patient feeling a lot better today, I suspect her abdominal pain was secondary to pneumoperitoneum, constipation and fevers likely secondary to atelectasis since patient was unable to take deep breaths. Her incentive spirometry is improved today and she is had bowel movements. We will therefore start her on a full liquid diet and give 1 bottle of magnesium citrate and enema today. If she does well she can go home later today Status: Acute Attestations Medical Necessity Statement*: Abdominal pain status post inguinal hernia repair Coding Level of Care Code Acute Infant Childcare Provider for Sue Arauz Diagnoses Status post left inguinal hernia repair Z98.890; Z87.19
--- NOTE | 2019-06-06 14:04 | PM.DCS ---
Discharge Providers Date of Admission: 06/05/19 00:55 Date of Discharge: June 06, 2019 Attending Provider at Admission: Salbador Light MD Attending Provider at Discharge: Salbador Light MD Diagnoses at Discharge Discharge Diagnosis (1) Status post left inguinal hernia repair: Status: Acute Reason for Visit Reason for Visit: Reason For Visit: abd pain Hospital Course Discharge Summary: Brittny Ramirez is a 79 year old female who had undergone laparoscopic repair of left inguinal hernia with mesh day before yesterday. Patient had done well yesterday morning and did not have any abdominal pain and had gone for 1/2 mile walk. Later yesterday she started having abdominal pain, distention and started running a fever. Patient states that the pain is mainly on the right side does not have any pain at the site of the surgical repair. She denies any nausea or vomiting. She has already walked 2 laps on the floor today but states that she is the most comfortable when she is sitting up on her side. Her T-max since admission was 99.7 this morning, she is not tachycardic. She had a CT abdomen pelvis which showed large amount of pneumoperitoneum but no evidence of bowel injury. She seems to have significant amount of stool in the right colon. Patient states that her pain got worse after she took Colace yesterday. Denies any urinary symptoms or shortness of breath though she states that she is not able to take a deep breath. She was put on an aggressive bowel regimen and by following morning she had large bowel movements. At time of discharge her abdominal pain was minimal, she was tolerating a liquid diet and her vital signs are stable Physical Exam Narrative: EXAM NARRATIVE: Abdomen: Soft, nontender, nondistended Discharge Data Data Completed and Pending: Completed Studies During Hospitalization Category Date Time Status CT abdomen pelvis w con* [id number] Urge nt Cat Scan 06/04/19 19:[address] abdomen pelvis wo con [id number] Urge nt Cat Scan 06/04/19 21:55 Completed XR chest 1V sanchez ble [id number] Urgent Exams 06/05/19 09:00 Completed Pending at discharge Category Date Time Status Urine Culture Sta t Lab 06/04/19 20:35 Results Vitals: Last Vital Signs Temp 98.6 F 06/06/19 11:33 Pulse 78 06/06/19 11:33 Resp 18 06/06/19 11:33 BP 117/71 06/06/19 11:33 Pulse Ox 94 06/06/19 11:33 Discharge Plan Discharge Patient Disposition: Home, Self-Care Condition: Stable Prescriptions: New lactulose 10 gram/15 mL solution 15 ml PO BID Qty: 237 RF: 2 Continued furosemide 20 mg tablet 20 mg PO PRN RF: 0 simvastatin 20 mg tablet 20 mg PO DAILY RF: 0 timolol 0.25 % drops 1 drop ophthalmic (eye) DAILY RF: 0 zolpidem 5 mg tablet 5 mg PO BEDTIME PRN (Reason: Sleep) RF: 0 hydrocodone-acetaminophen [[place]] 5-325 mg Tablet 1 tab PO Q4H PRN (Reason: Pain) RF: 0 docusate sodium [Colace] 100 mg capsule 100 mg PO BID Qty: 30 RF: 0 Discharge Orders: Discharge Order (Routine); Ordered 06/06/19 Ordered By: Salbador Light Referrals: Renetta Chong MD [Family Provider] - 06/13/19 8:00 am (Please keep the appointment you already have scheduled with dr. chong at [facility] on Thursday, June 12 at 8:00am. any questions or appointment changes, please call them at [phone]) Patient Instructions: Abdominal Pain - Adult, Lactulose (By mouth), Inguinal Hernia (DC) Activity Restrictions/Additional Instructions: 1. Up and walking as tolerated. 2. Ok to shower in 48 hours after surgery. 3. Remove Dermabond dressing in 7-10 days. 4. Do not lift more than 10 pounds. 5. Do not operate heavy machinery or drive while using pain medications. 6. Advised to return to ER or contact my office if there are any signs of infection like, increasing pain, fevers, chills, redness or drainage of pus. Discharge Date/Time: 06/06/19 17:15 Discharge Attestations Time Spent in Discharge Care*: less than 30 min Quality Metrics Clinical Quality Measures During this hospital stay, did patient experience: None Coding Level of Care Code Acute Airway Traffic Controller for Pasqualeg Fwd Diagnoses Status post left inguinal hernia repair Z98.890; Z87.19
[2019-06-06 14:13] VITALS: BP 117/71; PULSE 78; RESP 18; TEMP 37; O2SAT 94
[2019-06-06 15:43] VITALS: BP 136/71; PULSE 80; RESP 18; TEMP 36.8; O2SAT 93
--- NOTE | 2019-06-06 17:40 | PC.NURSE ---
Dsicharge Summary Patient was given discharge instructions and verbalized understanding. Iv discontinued and vitals within normal patient limits. all follow up appointments made and prescriptions sent to pharmacy. discharged home with son.
== END 2019-06-06 17:15 | disposition home or self-care (01) ==
LOC: ER 06-05 01:12 → MEDSURG 06-05 01:19
PROVIDERS: Admitting Provider Surgery; Emergency Provider Emergency Medicine; Family Provider Family Medicine; Visit Provider Surgery
DX: R10.31 Right lower quadrant pain (principal); Z98.890 Other specified postprocedural states; Z87.19 Personal history of other diseases of the digestive system; R06.02 Shortness of breath
CPT/HCPCS: 12345; 36415; 71045; 74176; 74177; 80053; 81001; 83605; 83690; 85025; 86140; 87086; 96361; 96365; 96366; 96372; 96374; 96375; 99283; A9270; G0378; J1650; J2270; J2405; J2543; J7030; J7040; Q9967

== ENCOUNTER 2020-04-11 15:10 | Outpatient (CLI) | payer MEDICARE, SELFPAY ==
--- NOTE | 2020-04-11 15:12 | MM_ITS ---
WS: [id number] BILATERAL DIGITAL SCREENING MAMMOGRAPHY WITH CAD CLINICAL INFORMATION: SCREENING HISTORY: Screening mammogram. No current complaints. COMPARISON: TECHNIQUE: Bilateral CC and MLO views. FINDINGS: The breasts are composed of heterogeneous fibroglandular density tissue, which can limit the detectio n of small underlying mass lesions. 10 mm subareolar asymmetric density left breast. Recommend spot c ompression views and ultrasound for further evaluation. This is best seen on the MLO view. Right breast is unremarkable. MM/[place] [id number] IMPRESSION: BI-RADS: 0-Incomplete: Need additional imaging evaluation FOLLOW UP: Need Additional Imaging RECOMMEND LEFT BREAST DIAGNOSTIC MAMMOGRAPHY AND ULTRASOUND FOR FURTHER EVALUAT ION.
== END 2020-04-11 15:11 | disposition home or self-care (01) ==
LOC: RADSHAW 15:11
PROVIDERS: PCP Family Medicine; Visit Provider Family Medicine
DX: Z12.31 Encounter for screening mammogram for malignant neoplasm of breast (principal)
CPT/HCPCS: 77067

== ENCOUNTER 2020-05-01 10:37 | Outpatient (CLI) | payer MEDICARE, SELFPAY ==
--- NOTE | 2020-05-01 10:43 | US_ITS ---
WS: [id number] LEFT DIGITAL MAMMOGRAPHY WITH CAD CLINICAL INFORMATION: ABNORMAL MAMMOGRAM COMPARISON: April 11, 2020 TECHNIQUE: 3 views of the left breast were obtained. FINDINGS: Scattered fibroglandular densities of the left breast. The previously described 10 mm subareolar asym metric density left breast partially compresses out on the spot compression views. Ultrasound is pend ing. ULTRASOUND BREAST LEFT TECHNIQUE: Ultrasound left breast focused area of concern. CLINICAL INFORMATION: ABNORMAL MAMMOGRAM COMPARISON: None. FINDINGS: Ultrasound left breast at the nipple. There are several dilated subareolar ducts at the 3,6,9 12:00 p ositions.. No intraductal lesion visualized. No solid lesions to target for biopsy. No other suspicio us findings. US/US breast LT limited* [id number] IMPRESSION: BI-RADS: 2-Benign FOLLOW UP: 1 Year Follow-up Recommend return to annual screening mammography.
== END 2020-05-01 10:38 | disposition home or self-care (01) ==
LOC: RADSHAW 10:41
PROVIDERS: PCP Family Medicine; Visit Provider Family Medicine
DX: R92.8 Other abnormal and inconclusive findings on diagnostic imaging of breast (principal)
CPT/HCPCS: 76642; 77065

== ENCOUNTER 2022-06-16 15:15 | Outpatient (CLI) | payer MEDICARE, SELFPAY ==
--- NOTE | 2022-06-16 15:35 | MM_ITS ---
WS: [id number] BILATERAL 3D TOMOSYNTHESIS DIGITAL SCREENING MAMMOGRAPHY WITH CAD CLINICAL INFORMATION: SCREENING HISTORY: Screening mammogram. No current complaints. COMPARISON: April 11, 2020 TECHNIQUE: Bilateral CC and MLO views. FINDINGS: Scattered fibroglandular densities bilaterally. No suspicious focal mass, asymmetry, calcifications, or architectural distortion. No evidence of malignancy. Stable subareolar densities LEFT breast. This was previously evaluated. MM/[place] [id number] IMPRESSION: BI-RADS: 2-Benign FOLLOW UP: 1 Year Follow-up Recommend return to annual screening mammography.
== END 2022-06-16 15:16 | disposition home or self-care (01) ==
LOC: RAD 15:18
PROVIDERS: PCP Family Medicine; Visit Provider Family Medicine
DX: Z12.31 Encounter for screening mammogram for malignant neoplasm of breast (principal)
CPT/HCPCS: 77063; 77067

== ENCOUNTER 2022-07-25 17:30 | Emergency (ER) | payer MEDICARE, SELFPAY ==
[2022-07-25 17:35] VITALS: BP 184/84; PULSE 80; RESP 16; TEMP 36.8; O2SAT 93; BMI 25.6
--- NOTE | 2022-07-25 19:09 | CTR_ITS ---
PROCEDURE INFORMATION: Exam: CT Head Without Contrast Exam date and time: 07/25/2022 7:16 PM Age: 82 years old Clinical indication: Pain; Visual disturbance; Headache not specified; Additional info: Vision changes with headache TECHNIQUE: Imaging protocol: Computed tomography of the head without contrast. Radiation optimization: All CT scans at this facility use at least one of these dose optimization techniques: automated exposure control; mA and/or kV adjustment per patient size (includes targeted exams where dose is matched to clinical indication); or iterative reconstruction. REPORTING DATA: Count of CT and Cardiac NM exams in prior 12 months: This patient has received 0 known CTs and 0 known cardiac nuclear medicine studies in the 12 months prior to the current study. COMPARISON: No relevant prior studies available. RADIATION DOSE METRICS: Total DLP (mGy-cm): 1240.58 FINDINGS: Brain: No hemorrhage. No edema, mass effect or midline shift. Periventricular and deep white matter hypodensities compatible with chronic microvascular ischemic changes. Cerebral ventricles: No ventriculomegaly. Paranasal sinuses: Visualized sinuses are unremarkable. No fluid levels. Mastoid air cells: No mastoid effusion. Bones/joints: No acute fracture. Soft tissues: Unremarkable. CT/CT head wo con* [id number] IMPRESSION: No acute intracranial abnormality.
--- NOTE | 2022-07-25 19:14 | W.ED.EYEPROB ---
HPI - Eye Problem General: Chief complaint: Eye Problems Stated complaint: Loss of vision with anomalies after Time Seen by Provider: 07/25/22 18:48 History of Present Illness: Patient is an 82-year-old female comes to the ED with vision change. Patient has a history of glaucoma, retinal detachment in left eye and has had multiple surgeries on left eye. Patient states her symptoms today were nothing like her past eye problems. Patient states that this morning around 7 AM she had a vision change in her left eye. She describes the vision change as seen sparklers in the lower vision field of left eye. Approximately 10 minutes later she then developed a vision change in her right eye that she describes as a loss in the central vision. Peripheral vision in right eye was still intact and she describes seeing a kidney bourgeois shaped goodson goodson spot covering her central vision. Her vision symptoms lasted for approximately 2 hours and completely resolved. She then developed a mild headache and has had a mild headache all throughout the day today.Here in the ED she states her vision is back to her normal baseline and has been like that since vision change resolved earlier this morning. Patient also has a history of hypertension. Denies any eye pain, pain with ocular movements, eye redness, fevers, chills, chest pain, shortness of breath, nausea/vomiting, abdominal pain, bladder or bowel symptoms. Patient also states that she has been taking her blood pressures at home and they have been running high for the past several weeks. She is not currently on any blood pressure medication. Patient also states that over the past several weeks she notices that she has bruising very easily which is not typical for her. Patient denies being on any blood thinners. Associated symptoms: Reports headache(s); Denies fever(s), nausea, neck pain or vomiting Review of Systems Const: Denies: fever(s), chills or fatigue Eyes: Reports: change in vision; Denies: eye discomfort ENMT: Denies: throat pain, odynophagia, nasal discharge or nasal congestion Card: Denies: chest pain, palpitations, edema, swelling of feet/ankles, dyspnea on exertion or orthopnea Resp: Denies: dyspnea, productive cough or non-productive cough GI: Denies: abdominal pain, nausea, vomiting, diarrhea, constipation or hematochezia : Denies: flank pain, dysuria or hematuria Musc: Denies: neck pain, back pain or extremity swelling Skin/Breast: Denies: rash or new lesions Neuro: Reports: headache(s); Denies: numbness in extremities or weakness in extremities PFSH ED PFSH: Medical History (Updated 07/25/22 @ 20:46 by MARA Aguilar) Glaucoma Hyperlipidemia Insomnia Surgical History (Updated 06/05/19 @ 10:33 by Salbador Light MD) History of knee surgery 3 Status post left inguinal hernia repair (~06/03/19) Family History Other Anesthesia complication Denies family history of Bleeding disorder Social History Smoking and tobacco status: never smoked Physical Exam Const: COMMON NORMALS: patient oriented x3, healthy appearing and alert GENERAL APPEARANCE: cooperative and comfortable HENMT: COMMON NORMALS: normocephalic HEAD & SCALP: normocephalic MOUTH: Normal oral and palatal mucosa present THROAT: posterior oropharynx normal and uvula midline Eye: COMMON NORMALS: Equal, round and reactive pupils present, EOMs intact bilaterally and conjunctivae normal GENERAL EYE: appearance normal, both eyes and all related structures CONJUNCTIVA: Yes conjunctivae normal PUPIL: Yes Equal, round and reactive pupils present Neck/C-Spine: COMMON NORMALS: supple GENERAL: Yes normal visual inspection Lymph: LYMPHATIC: no lymphadenopathy noted Resp: COMMON NORMALS: normal respiratory effort, No retractions, No use of accessory muscles and clear to auscultation bilaterally AUSCULTATION: clear to auscultation bilaterally Cardio: COMMON NORMALS: regular rate, regular rhythm, S1 normal heart sound present, S2 normal heart sound present, No gallops present (Cardio), No clicks present (Cardio), No murmurs present (Cardio) and Peripheral pulses 2+ throughout RATE: regular rate RHYTHM: regular rhythm HEART SOUNDS: S1 normal heart sound present and S2 normal heart sound present PERIPHERAL PULSES: Peripheral pulses 2+ throughout GI: COMMON NORMALS: Normal to inspection, nondistended, normoactive bowel sounds present, Soft to palpation, non-tender and no masses PALPATION: Yes Soft to palpation : COMMON NORMALS: Yes no CVA tenderness BLADDER/KIDNEY EXAM: Yes no CVA tenderness Back/Pelvis: COMMON NORMALS: no CVA tenderness Extremity: GENERAL: Yes normal exam except as noted Neuro: COMMON NORMALS: patient oriented x3, CN's II-XII intact bilaterally, moves all extremities, no focal motor deficits and no sensory deficits noted SENSORIUM/ORIENTATION: Yes alert COORDINATION/BALANCE: [id number] test normal SPEECH: speech normal GAIT: Yes Normal gait present SENSORY EXAM: Yes extremities (intact) MOTOR EXAM: 5/5 motor strength present throughout COORDINATION: [id number]-[id number] test normal Skin: COMMON NORMALS: no rashes or lesions noted GENERAL SKIN EXAM: no rashes or lesions noted and dry skin Course Vital Signs: Vital signs: Vital Signs Temperature 98.2 F 07/25/22 17:35 Pulse Rate 66 07/25/22 20:54 Respiratory Rate 16 07/25/22 20:54 Blood Pressure 135/68 07/25/22 20:54 Pulse Oximetry 93 07/25/22 20:54 Oxygen Delivery Me thod Room Air 07/25/22 17:35 MDM - Eye Problem Medical Decision Making Patient is an 82-year-old female comes to the ED with vision change. Patient has a history of glaucoma, retinal detachment in left eye and has had multiple surgeries on left eye. Patient states her symptoms today were nothing like her past eye problems. Patient states that this morning around 7 AM she had a vision change in her left eye. She describes the vision change as seen sparklers in the lower vision field of left eye. Approximately 10 minutes later she then developed a vision change in her right eye that she describes as a loss in the central vision. Peripheral vision in right eye was still intact and she describes seeing a kidney bourgeois shaped goodson goodson spot covering her central vision. Her vision symptoms lasted for approximately 2 hours and completely resolved. She then developed a mild headache and has had a mild headache all throughout the day today.Here in the ED she states her vision is back to her normal baseline and has been like that since vision change resolved earlier this morning. Patient also has a history of hypertension. Denies any eye pain, pain with ocular movements, eye redness, fevers, chills, chest pain, shortness of breath, nausea/vomiting, abdominal pain, bladder or bowel symptoms. Patient also states that she has been taking her blood pressures at home and they have been running high for the past several weeks. She is not currently on any blood pressure medication. Patient also states that over the past several weeks she notices that she has bruising very easily which is not typical for her. Patient denies being on any blood thinners. Patient had some elevated blood pressures here in the ED with the highest being 184/84 and the rest of her vitals were stable. Exam is benign and eye exam was normal. Neuro exam showed no deficits. CBC and BMP were unremarkable. Head CT showed no acute findings. Patient's vision is still back to its baseline and she has no other complaints or symptoms. Patient was stable for discharge home and diagnosed with vision disturbance and hypertension. She was sent home with a prescription for lisinopril hydrochlorothiazide and told to follow-up with her PCP within the next week for reevaluation. Return to ED precautions given. Patient understood and agreed with plan. Lab Data I reviewed the patient's lab results. 07/25/22 20:05 07/25/22 20:[address] 07/25/22 19:09 IMPRESSION: No acute intracranial abnormality. Laboratory Results WBC 4.9 10^3/uL (4.0-10.0) 07/25/22 20:05 RBC 4.16 10^6/uL (4.1-5.3) 07/25/22 20:05 Hgb 12.6 g/dL (11.5-15.3) 07/25/22 20:05 Hct 41.3 % (37.0-47.0) 07/25/22 20:05 MCV 99.3 fl (81-99) H 07/25/22 20:05 MCH 30.3 pg (28.0-34.0) 07/25/22 20:05 MCHC 30.5 g/dL (30.0-36.0) 07/25/22 20:05 RDW 12.8 % (12.1-15.1) 07/25/22 20:05 Plt Count 181 10^3/cmm (130-400) 07/25/22 20:05 MPV 9.3 fL (7.4-10.4) 07/25/22 20:05 Neut % (Auto) 59.7 % 07/25/22 20:05 Lymph % (Auto) 29.4 % 07/25/22 20:05 [place] % (Auto) 7.6 % 07/25/22 20:05 Eos % (Auto) 3.1 % 07/25/22 20:05 Baso % (Auto) 0.2 % 07/25/22 20:05 Neut # (Auto) 2.90 10^3/uL (1.8-7.7) 07/25/22 20:05 Lymph # (Auto) 1.4 10^3/uL (0.8-4.8) 07/25/22 20:05 [place] # (Auto) 0.4 10^3/uL (0.2-0.9) 07/25/22 20:05 Eos # (Auto) 0.2 10^3/uL (0.0-0.8) 07/25/22 20:05 Baso # (Auto) 0.0 10^3/uL (0.0-0.1) 07/25/22 20:05 Nucleated RBC % (auto) 0 % 07/25/22 20:05 Nucleated RBCs # 0.0 /100WBC 07/25/22 20:05 PT 12.40 SECONDS (12.1-14.9) 07/25/22 20:05 INR 0.90 (0.8-1.2) 07/25/22 20:05 APTT 28.5 SECONDS (23.9-36.7) 07/25/22 20:05 Sodium 141 mmol/L (136-145) 07/25/22 20:05 Potassium 4.0 mmol/L (3.5-5.1) 07/25/22 20:05 Chloride 101 mmol/L (98-107) 07/25/22 20:05 Carbon Dioxide 29 mmol/L (22-29) 07/25/22 20:05 Anion Gap 15.0 (5-19) 07/25/22 20:05 BUN 35 mg/dL (8-23) H 07/25/22 20:05 Creatinine 0.7 mg/dL (0.5-0.9) 07/25/22 20:05 GFR Calculation Not Reportable 07/25/22 20:05 Glucose 91 mg/dL (65-115) 07/25/22 20:05 Calculated Osmolality 300 mOsm/kg (285-295) H 07/25/22 20:05 Calcium 9.7 mg/dL (8.5-10.5) 07/25/22 20:05 Discharge Plan Discharge Patient Disposition: Home Clinical Impression: Vision disturbance, Hypertension Condition: Stable Prescriptions: New lisinopril-hydrochlorothiazide 10-12.5 mg tablet 1 tab PO DAILY Qty: 30 0RF No Action furosemide 20 mg tablet 20 mg PO PRN simvastatin 20 mg tablet 20 mg PO DAILY timolol 0.25 % drops 1 drop ophthalmic (eye) DAILY zolpidem 5 mg tablet 5 mg PO BEDTIME PRN (Reason: Sleep) hydrocodone-acetaminophen [[place]ideman] 5-325 mg Tablet 1 tab PO Q4H PRN (Reason: Pain) docusate sodium [Colace] 100 mg capsule 100 mg PO BID Qty: 30 0RF lactulose 10 gram/15 mL solution 15 ml PO BID Qty: 237 2RF Discharge Orders: Discharge ED (Routine); Ordered 07/25/22 Ordered By: Collin Gloria Referrals: Renetta Chong MD [Primary Care Provider] - Discharge Diet: Regular Discharge Activity: Increase activity as tolerated Activity Restrictions/Additional Instructions: Follow-up with medical provider as directed in the next 1 to 2 weeks for reevaluation. Take medications as prescribed. Continue checking your blood pressures at home daily and write them down so primary care physician can see them at your next visit. Return to the ER or your medical provider if condition worsens. Please read and understand discharge instructions. Thank you for choosing [facility] for your healthcare needs today. Please realize this is an emergency room and that we are providing you with a medical screening exam and this may not be complete and all inclusive of all the testing and or work up that you may need to determine your ailment or severity of your illness. It is very important that you follow up as instructed or that you return to the Emergency Department should you have concerns or if your condition changes or worsens in any way. Coding Level of Care Code ED Belt Back Operator for Sue Arauz
[2022-07-25 19:16] VITALS: BP 150/118; PULSE 73; RESP 16; O2SAT 94
[2022-07-25 20:11] LABS: Basophils % 0.2 %; Eosinophils # 0.2 10^3/uL (0.0-0.8); Eosinophils % 3.1 %; Hematocrit 41.3 % (37.0-47.0); Hemoglobin 12.6 g/dL (11.5-15.3); Lymphocytes # 1.4 10^3/uL (0.8-4.8); Lymphocytes % 29.4 %; Mean Corpuscular HGB Conc 30.5 g/dL (30.0-36.0); Mean Corpuscular Hemoglobin 30.3 pg (28.0-34.0); Mean Corpuscular Volume 99.3 fl (81-99); Mean Platelet Volume 9.3 fL (7.4-10.4); Monocytes # 0.4 10^3/uL (0.2-0.9); Monocytes % 7.6 %; Neutrophils % 59.7 %; Nucleated Red Blood Cells % 0 %; Platelet Count 181 10^3/cmm (130-400); Red Blood Count 4.16 10^6/uL (4.1-5.3); Red Cell Distribution Width 12.8 % (12.1-15.1); White Blood Count 4.9 10^3/uL (4.0-10.0)
[2022-07-25 20:26] LABS: Partial Thromboplastin Time 28.5 SECONDS (23.9-36.7)
[2022-07-25 20:29] LABS: Blood Urea Nitrogen 35 mg/dL (8-23); Calcium 9.7 mg/dL (8.5-10.5); Carbon Dioxide 29 mmol/L (22-29); Chloride 101 mmol/L (98-107); Glucose 91 mg/dL (65-115); Osmolality Calculated 300 mOsm/kg (285-295); Sodium 141 mmol/L (136-145)
[2022-07-25 20:54] VITALS: BP 135/68; PULSE 66; RESP 16; O2SAT 93
== END 2022-07-25 20:55 | disposition home or self-care (01) ==
PROVIDERS: Emergency Provider Physician Assistant; PCP Family Medicine
DX: H53.9 Unspecified visual disturbance (principal); I10 Essential (primary) hypertension; E78.5 Hyperlipidemia, unspecified
CPT/HCPCS: 36415; 70450; 80048; 85025; 85610; 85730; 99284

== ENCOUNTER 2023-07-15 11:49 | Outpatient (CLI) | payer MEDICARE, SELFPAY ==
--- NOTE | 2023-07-15 11:54 | MM_ITS ---
WS: [id number] VIEWS: MLO and CC views both breasts. 3D digital tomosynthesis is also included in this exam. Comparison made with prior exam of 11/05/2006, 11/17/2007, 12/26/2009, 03/29/2011, 01/30/2015, 04/11/2020 ,. Findings: There was no sign of mass, architectural distortion or suspicious calcification in either breast. The re are scattered areas of fibroglandular density. MM/[place] [id number] Impression: BI-RADS: 2-Benign finding FOLLOW-UP: 1 Year Follow-up This mammogram was also analyzed by the Computer Aided Detection System R2 Imag e Transportation Maintenance Supervisor.
[2023-07-15 13:04] VITALS: PULSE 60; RESP 18; O2SAT 98
[2023-07-15] MEDS: albuterol 2.5 mg/3 mL Neb INHALATION (13:04)
== END 2023-07-15 11:50 | disposition home or self-care (01) ==
LOC: RAD 11:50
PROVIDERS: PCP Family Medicine; Visit Provider Family Medicine
DX: Z12.31 Encounter for screening mammogram for malignant neoplasm of breast (principal); R92.323 Mammographic fibroglandular density, bilateral breasts; R06.00 Dyspnea, unspecified
CPT/HCPCS: 77063; 77067; 94060; 94729; J7613

== ENCOUNTER 2023-08-06 12:53 | Outpatient (CLI) | payer MEDICARE, SELFPAY ==
--- NOTE | 2023-08-06 | ECG_ITS ---
[facility] Test Date: 2023-08-06 Pat Name: Brittny Ramirez Department: Room: Gender: Female Curriculum And Assessment Director: Milli Mark : 1940 Requested By: Renetta Acharya Order Number: [id number] Otto MD: YG SALGADO Interpretive Statements NAME OF STUDY: TREADMILL STRESS ECHOCARDIOGRAM INDICATION: Dyspnea, pt unable to meet Target HR, maximal effort acheieved NOTE: Please note that this is the electrocardiogram portion of the Lexiscan/Sestamibi stress test. The perfusion scan will be documented separately. DATA: Baseline heart rate was 67 beats per minute. Baseline blood pressure was 142/74 millimeters of mercury. Target heart rate was 138. Maximum heart rate achieved was 103. which was 74% of the predicted target heart rate. Maximum blood pressure was 154/77 millimeters of mercury. The reason for ending the test was completion of the protocol. The patient did not experience any symptoms. ELECTROCARDIOGRAM: BASELINE: Sinus rhythm. Normal axis. Incomplete right bundle branch block otherwise, no ST-T changes suggestive of ischemia noted. Occasional PVC noted EXERCISE: After Lexiscan injection, no ST-T changes suggestive of ischemic noted. No arrhythmia noted. CONCLUSION: Please note due to baseline abnormality of the EKG specificity and sensitivity of the EKG portion of LexiScan MIBI stress test will be low 1. EKG not suggestive of ischemia 2. Lexiscan injection unremarkable. 3. Perfusion scan will be documented separately. Electronically Signed On 08-06-2023 22:06:56 CDT by YG SALGADO [id number]
[2023-08-06 13:07] VITALS: BMI 26.5
--- NOTE | 2023-08-06 13:07 | USCV_ITS ---
Stress Echo Brittny Ramirez Age: 83 Gender: F : 1940 Exam Date: 08/06/2023 13:20 Ordering Phys: Renetta Chong MD Technologist: Exam Location: [facility] – [place] Indication: Dyspnea Rhythm: Sinus Patient History: Hyperlipidemia Cardiac Medications: Simvastatin 20mg, Furosemide 20mg PRN, Lisinopril-Hctz 10-12.5 Medications in past 24 hours: None Contrast: Stress Results Protocol: Hossein Total dose(mL): Exercise Duration (min:sec): 3:19 METS: 6.1 Resting HR: 67 Resting BP: 142 / 74 Peak HR: 103 Peak BP: 154 / 77 Max Predicted HR: 138 75 % Max Predicted HR Target HR: 117 Double Product: 54268 Stress Summary: The patient's target heart rate was not achieved The patient's target heart rate was not achieved due to fatigue/dyspnea BP Response: Normal Reason for Termination: Maximal effort/unable to continue Cardiac Symptoms: Shortness of breath ECG Analysis Resting ECG: Stress ECG: Arrhythmia: MEASUREMENTS (Male/Female) Normal Values FINDINGS Baseline: Normal left ventricle size and ejection fraction estimate ejection fraction around 60%. No wall motion abnormality. Peak exercise: Good augmentation of left ventricle, no wall motion abnormality Recovery: No wall motion abnormality CONCLUSIONS Echocardiographic portion of the stress test is not suggestive of ischemia. EKG segment will be documented separately. Krystin Nelson MD (Electronically Signed) Final Date: 06 August 2023 20:23 S
[2023-08-06 13:54] VITALS: BP 118/67; PULSE 80
== END 2023-08-06 12:54 | disposition home or self-care (01) ==
PROVIDERS: PCP Family Medicine; Visit Provider Family Medicine
DX: R06.00 Dyspnea, unspecified (principal)
CPT/HCPCS: 93017; 93350

== ENCOUNTER → 2024-07-18 10:56 | Outpatient (BNVA) | payer MEDICARE, SELFPAY | PROVIDERS: PCP Family Medicine; Visit Provider Student in an Organized Health Care Education/Training Program | DX: R19.4 Change in bowel habit (principal) | CPT/HCPCS: 99204 ==

== ENCOUNTER 2024-09-06 10:24 | Day surgery (SDC) | payer MEDICARE, SELFPAY ==
[2024-09-06 10:41] VITALS: BP 140/72; PULSE 69; RESP 18; TEMP 36.3; O2SAT 94; BMI 26.3
--- NOTE | 2024-09-06 12:07 | W.PM.OPSFHP ---
Same Day Surgery H&P Indication for Procedure/HPI DATE OF PROCEDURE: September 06, 2024 CHIEF COMPLAINT/INDICATIONFOR SURGICAL PROCEDURE: changes in bowel habits PREOP DIAGNOSIS: changes in bowel habits PLANNED PROCEDURE: Operation Date: 09/06/24 12:00 Proposed Procedures p Colonoscopy 60036 G0105, R19.4(Not Applicable) - Antione Santos MD Medications/Allergies* Home Medications ?Medication ?Instructions ?Recorded ?Confirmed ?Type furosemide 20 mg tablet 20 mg PO PRN PRN Edema 06/02/19 09/05/24 History simvastatin 20 mg tablet 20 mg PO DAILY 06/02/19 09/05/24 History timolol 0.25 % eye drops 1 drop ophthalmic (eye) DAILY 06/02/19 09/05/24 History zolpidem 5 mg tablet 5 mg PO BEDTIME PRN Sleep 06/02/19 09/05/24 History hydrocodone 5 mg-acetaminophen 325 1 tab PO Q4H PRN Pain 06/03/19 09/05/24 History mg tablet ([place]) fluticasone 250 mcg-salmeterol 50 1 inh inhalation BID 09/05/24 09/05/24 History mcg/dose blistr powdr for inhalation (Advair Diskus) Allergies/Adverse Reactions Allergy/AdvReac Type Severity Reaction Status Date / Time Antihistamines - Alkylamine Allergy ADR-Hyperte Verified 09/05/24 09:14 nsion Antihistamines - Ethanolamine Allergy ADR-Hyperte Verified 09/05/24 09:14 nsion Antihistamines - Allergy ADR-Hyperte Verified 09/05/24 09:14 Ethylenediamine nsion Antihistamines - Piperazine Allergy ADR-Hyperte Verified 09/05/24 09:14 nsion Antihistamines - Piperidine Allergy ADR-Hyperte Verified 09/05/24 09:14 nsion pneumococcal vaccine (From Allergy Unknonwn Verified 09/05/24 09:14 Pneumovax-23) quinine Allergy Restless Verified 09/05/24 09:14 leg Pertinent History/Comorbid Conditions* Medical History (Updated 07/18/24 @ 11:11 by Antione Santos MD) Insomnia Glaucoma Hyperlipidemia Surgical History (Updated 06/05/19 @ 10:33 by Salbador Light MD) Status post left inguinal hernia repair (~06/03/19) History of knee surgery 3 Family History (Updated 06/02/19 @ 16:27 by Judit Murray, KENYA) Anesthesia complication Denies family history of Bleeding disorder Social History Smoking and tobacco/nicotine status: never used tobacco/nicotine Pertinent Exam Findings alert, oriented x 3, clear to auscultation bilaterally, regular rate & rhythm and procedure specific exam findings abdomen soft, nt, nd Recommendations Risks and benefits of procedure reviewed and Patient/family agree to proceed Surgery/Procedure today Coding Level of Care Code Acute Code for Chg Davonte
--- NOTE | 2024-09-06 12:15 | ANES.PREANE2 ---
Pre-Anesthetic Assessment Height/Weight: Height 1.57 m Weight 65.317 kg Temp Pulse Resp BP Pulse Ox O2 Del Method 97.3 F L 69 18 140/72 94 Room Air 09/06/24 10:41 09/06/24 10:41 09/06/24 10:41 09/06/24 10:41 09/06/24 10:41 09/06/24 10:41 Preop Diagnosis: changes in bowel habits Operation Date: 09/06/24 12:00 Proposed Procedures p Colonoscopy [id number] G0105, R19.4(Not Applicable) - Antione Santos MD Familial anesthetic complications: none Last intake: Intake Last Liquid Date 09/05/24 Last Liquid Time 20:00 Last Solid Date 09/03/24 Last Solid Time 18:00 Social No alcohol and No tobacco Exam alert, oriented x 3, clear to auscultation bilaterally and regular rate & rhythm Airway Submandibular: within normal limits Cervical ROM: within normal limits Mallampati: Class II Pulmonary Shortness of Breath CV/HEM None reported None reported Hepatic None reported Metabolic None reported Musc/skel Osteoarthritis/DJD Neuropsych None reported Anesthetic Plan ASA status: 3 Anesthesia: MAC Risk of > 500 ml blood loss (7ml/kg in children): No Medications/Allergies Home Medications ?Medication ?Instructions ?Recorded ?Confirmed ?Last Taken ?Type furosemide 20 mg tablet 20 mg PO PRN PRN Edema 06/02/19 09/05/24 06/02/19 History simvastatin 20 mg tablet 20 mg PO DAILY 06/02/19 09/05/24 09/04/24 History timolol 0.25 % eye drops 1 drop ophthalmic (eye) DAILY 06/02/19 09/05/24 09/05/24 History zolpidem 5 mg tablet 5 mg PO BEDTIME PRN Sleep 06/02/19 09/05/24 09/04/24 History hydrocodone 5 mg-acetaminophen 325 1 tab PO Q4H PRN Pain 06/03/19 09/05/24 06/02/19 History mg tablet ([place]) fluticasone 250 mcg-salmeterol 50 1 inh inhalation BID 09/05/24 09/05/24 09/05/24 History mcg/dose blistr powdr for inhalation (Advair Diskus) Allergies Allergy/AdvReac Type Severity Reaction Status Date / Time Antihistamines - Alkylamine Allergy ADR-Hyperte Verified 09/05/24 09:14 nsion Antihistamines - Ethanolamine Allergy ADR-Hyperte Verified 09/05/24 09:14 nsion Antihistamines - Allergy ADR-Hyperte Verified 09/05/24 09:14 Ethylenediamine nsion Antihistamines - Piperazine Allergy ADR-Hyperte Verified 09/05/24 09:14 nsion Antihistamines - Piperidine Allergy ADR-Hyperte Verified 09/05/24 09:14 nsion pneumococcal vaccine (From Allergy Unknonwn Verified 09/05/24 09:14 Pneumovax-23) quinine Allergy Restless Verified 09/05/24 09:14 leg [facility] Anesthesia Medical History (Updated 07/18/24 @ 11:11 by Antione Santos MD) Insomnia Glaucoma Hyperlipidemia Surgical History Status post left inguinal hernia repair (~06/03/19) History of knee surgery 3 Family History Other Anesthesia complication Denies family history of Bleeding disorder Social History Smoking and tobacco/nicotine status: never used tobacco/nicotine Data Anesthesia Cardiac Studies: Stress Echocardiogram 08/06/23
[2024-09-06 12:36] VITALS: BP 129/70; PULSE 65; RESP 16; TEMP 36.7; O2SAT 94
--- NOTE | 2024-09-06 12:51 | SUR.OPER ---
CECUM TIME 1227
--- NOTE | 2024-09-06 16:05 | ANE.PACU2 ---
Inpatient post-anesthesia follow up: Airway intact: Yes Vital signs: Temperature 98.1 F Pulse Rate 65 Respiratory Rate 16 Blood Pressure 129/70 Pulse Oximetry 94 Oxygen Delivery Me thod Room Air Oxygen Flow Rate Fraction of Inspir ed Oxygen Hydration adequate: Yes Nausea and vomiting: No Pain level: 1 Mental status: Baseline
== END 2024-09-06 13:40 | disposition home or self-care (01) ==
PROVIDERS: PCP Nurse Practitioner Family; Visit Provider Student in an Organized Health Care Education/Training Program
PROC: 0DJD8ZZ Inspection of Lower Intestinal Tract, Via Natural or Artificial Opening Endoscopic (ICD-10-PCS; CPT 45378; principal; 2024-09-06 12:00)
DX: K57.30 Diverticulosis of large intestine without perforation or abscess without bleeding (principal); E78.5 Hyperlipidemia, unspecified; H40.9 Unspecified glaucoma; M19.90 Unspecified osteoarthritis, unspecified site; Z79.899 Other long term (current) drug therapy; Z88.8 Allergy status to other drugs, medicaments and biological substances
CPT/HCPCS: 45378; J2704; J7030

== ENCOUNTER → 2025-01-16 09:44 | Outpatient (BNVA) | payer MEDICARE, SELFPAY | PROVIDERS: PCP Family Medicine; Visit Provider Family Medicine | DX: M81.0 Age-related osteoporosis without current pathological fracture (principal); I10 Essential (primary) hypertension; E78.2 Mixed hyperlipidemia; E55.9 Vitamin D deficiency, unspecified; R19.4 Change in bowel habit | CPT/HCPCS: 80053; 80061; 82306; 82310; 83970; 84439; 84443; 85025 ==